=== PATIENT | male | born 1985 | race Caucasian/White ===

== ENCOUNTER 2024-06-06 06:15 | Emergency (ER) | payer BC ==
[~2024-06-06] VITALS: Ht 175.3 cm; Wt 94.6 kg
[2024-06-06] MEDS ORDERED: ZOLOFT25 MG PO (06:22)
[2024-06-06] MEDS ORDERED: ALBUTEROL SULFATE 0.5% 2.5 MG/0.5 ML VIAL ONE (06:27)
[2024-06-06] MEDS ORDERED: ALBUTEROL/IPRATROPIUM 3 ML NEB INH ONE ×2 (06:30→08:15)
[2024-06-06] MEDS ORDERED: methylPREDNISolone SOD SUCC 125 MG/2 ML VIAL IV ONE (06:30)
[2024-06-06] MEDS ORDERED: LACTATED RINGER'S 1,000 ML IV ONE (06:30)
[2024-06-06] MEDS ORDERED: ALBUTEROL SULFATE 0.5% 2.5 MG/0.5 ML VIAL INH ONE (06:30)
[2024-06-06 06:32] LABS: BASOPHILS 0.5 % (0-2); EOSINOPHILS 2.4 % (0-6); HEMATOCRIT 43.8 % (35.0-50.0); HEMOGLOBIN 15.4 g/dL (12.0-18.0); LYMPHOCYTES 29.5 % (24-44); MCH 29.7 (27-36); MCHC 35.1 g/dl (30-36); MCV 84.6 fl (81-99); NEUTROPHILS 55.6 % (39-80); PLATELET COUNT 324 K/uL (140-440); RBC 5.18 M/ul (4.3-5.7); RDW 12.6 (10.5-15.0)
[2024-06-06 06:53] LABS: ALBUMIN 4.3 g/dL (3.4-5.0); ALBUMIN/GLOBULIN RATIO 1.19 (1.1-2.4); ALKALINE PHOSPHATASE 106 U/L (46-116); ALT (SGPT) 26 U/L (14-59); ANION GAP 15.9 (7-21); AST (SGOT) 17 U/L (15-37); BILIRUBIN, TOTAL 0.6 ng/dL (0.2-1.0); CALCIUM 9.9 mg/dL (8.5-10.1); CARBON DIOXIDE 27 mmol/L (21-32); CHLORIDE 102 mmol/L (98-107); CREATININE, SERUM 1.25 mg/dL (0.70-1.30); GLOMERULAR FILTRATION RATE,EST 76 mL/min (>60); POTASSIUM 3.9 mmol/L (3.5-5.1); PROTEIN, TOTAL 7.9 g/dL (6.4-8.2); UREA NITROGEN 14 mg/dL (7-18)
[2024-06-06] MEDS ORDERED: ACETAMINOPHEN 500 MG TAB PO ONE (07:00)
[2024-06-06] MEDS ORDERED: INHALER, ASSIST DEVICES 1 EACH SPACER MISC ONE (07:15)
[2024-06-06] MEDS ORDERED: ALBUTEROL SULFATE 8 GM HOME.PACK INH ONE (07:15)
[2024-06-06] MEDS ORDERED: PREDNISONE20 MG PO (07:20)
[2024-06-06 07:26] LABS: INFLUENZA B NAA NEGATIVE (NEGATIVE); RESPIRATORY SYNCYTIAL VIR NAA NEGATIVE (NEGATIVE)
[2024-06-06] MEDS ORDERED: IPRAT-ALBUT 0.5-3 ML INH (08:52)
[2024-06-06 08:59] VITALS: BP 129/82
--- NOTE | 2024-06-08 17:29 | EKG ---
[facility] [address] [facility] [facility] [place], [place] [address] Signed Normal sinus rhythm Normal ECG No previous ECGs available Confirmed by Angy Haddad MD ([id number]) on 06/08/2024 5:28:46 PM Electronically Signed By: ANYG HADDAD DO 06/08/24 1729 PATIENT NAME: MILES MONGE Electrocardiogram DATE OF : 87 PHYSICIAN: ANGY HADDAD DO REPORT #: [id number] REPORT IS CONFIDENTIAL AND NOT TO BE RELEASED WITHOUT AUTHORIZATION
== END 2024-06-06 09:00 | disposition home or self-care (01) ==
LOC: ED 06:15
PROVIDERS: Internal Medicine
DX: J06.9 Acute upper respiratory infection, unspecified (principal); Z88.7 Allergy status to serum and vaccine; Z79.899 Other long term (current) drug therapy; Z11.52 Encounter for screening for COVID-19
CPT/HCPCS: 36415; 71045; 80053; 83880; 84484; 85025; 85379; 87502; 93005; 93010; 94640; 96361; 96374; 99285-25; A9270; J2919; J7121; U0002

== ENCOUNTER 2024-06-13 04:45 | Emergency (ER) | payer BC ==
[~2024-06-13] VITALS: Ht 175.3 cm; Wt 95.4 kg
[~2024-06-13 04:45] MED LIST: IPRAT-ALBUT 0.5-3 ML INH; PREDNISONE20 MG PO; ZOLOFT25 MG PO
--- OUTSIDE RECORDS SUMMARY | 2024-06-13 04:50 | XMS ---
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 Kenzie has no Care Guidelines for this patient. [facility]12 MO.) [facility] NOTE: Visits indicate total known visits. ED/[facility] [place] VISIT TRACKING (12 MO.) 06/13/2024 04:[address] [facility] [place] TYPE: Emergency COMPLAINT: - DIFFICULTY BREATHING 06/06/2024 06:16 [facility] [place] TYPE: Emergency COMPLAINT: - DIFFICULTY BREATHING DIAGNOSES: - Acute upper respiratory infection, unspecified - Allergy status to serum and vaccine - Encounter for screening for COVID-19 - Other jail (current) drug therapy - Shortness of breath INPATIENT VISIT TRACKING (12 MO.) No inpatient visits to display in this time frame [email or web address]
[2024-06-13] MEDS ORDERED: IPRATROPIUM BROMIDE 2.5 ML VIAL INH ONE (05:15)
[2024-06-13] MEDS ORDERED: ALBUTEROL SULFATE 0.5% 2.5 MG/0.5 ML VIAL INH ONE (05:15)
[2024-06-13] MEDS ORDERED: methylPREDNISolone SOD SUCC 125 MG/2 ML VIAL IV ONE (05:15)
[2024-06-13] MEDS ORDERED: PREDNISONE20 MG PO (06:08)
[2024-06-13 07:10] VITALS: BP 123/82
== END 2024-06-13 07:04 | disposition home or self-care (01) ==
LOC: ED 04:45
DX: J45.901 Unspecified asthma with (acute) exacerbation (principal); Z88.7 Allergy status to serum and vaccine; Z79.52 Long term (current) use of systemic steroids; Z79.899 Other long term (current) drug therapy
CPT/HCPCS: 71045; 96374; 99285-25; J2919